=== PATIENT | female | born 1955 | race Caucasian/White ===

== ENCOUNTER 2018-02-06 06:13 | Day surgery (SDC) | payer BC, OTHER ==
--- NOTE | 2018-01-26 20:08 | HP ---
PREOPERATIVE HISTORY AND PHYSICAL: DATE OF ADMISSION/SURGERY: 02/06/18 DATE OF OFFICE VISIT: 01/26/18 ATTENDING SURGEON: Dr. Kirk Lombardi.* (DICTATED BY MARILUZ MARROQUIN) PROCEDURE: Right shoulder arthroscopic rotator cuff repair, decompression and debridement, and subpectoral biceps tenodesis. CHIEF COMPLAINT: Right shoulder. HISTORY OF PRESENT ILLNESS: Lubna is a 63-year-old female who presents to the clinic for a Workmen's Comp injury that caused a rotator cuff tear and biceps tendinitis. She has failed conservative measures and therefore agreed to undergo a right shoulder arthroscopic rotator cuff repair, decompression and debridement, and subpectoral biceps tenodesis with Dr. Lombardi on 02/06/18. PAST MEDICAL HISTORY: Denies current problems. PAST SURGICAL HISTORY: Cyst removal of the right leg x6, spine cyst removal, breast lumpectomy, appendectomy, bladder sling surgery, and tubal ligation. The patient denies prior complications with anesthesia. She does get nauseous with anesthesia. MEDICATIONS: Vitamin D 1000 International Units 2 by mouth every day. ALLERGIES: LATEX, SULFA ANTIBIOTICS. FAMILY HISTORY: Positive for cancer and thyroid issues. SOCIAL HISTORY: She lives with her . 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 She is a former smoker, quit 1 month ago. She denies tobacco use and she denies alcohol use. REVIEW OF SYSTEMS: A 14-point review of systems was reviewed with the patient. Positive for current complaint; otherwise, negative. Denies fever, chills, chest pain, shortness of breath, history of DVT or PE, history of bleeding disorder. PHYSICAL EXAMINATION GENERAL: A 63-year-old well-developed, well-nourished female, in no acute distress. VITAL SIGNS: Height 63, weight 136, blood pressure 120/68, respiratory rate 18 , BMI 24.1. HEENT: Normocephalic, atraumatic. PERRLA. Throat: Clear. NECK: Supple. PULMONARY: Lungs are clear to auscultation bilaterally. No wheezing, rhonchi, or rales. CARDIO: Regular rate and rhythm. S1, S2. No murmurs, gallops, or rubs. No edema. ABDOMEN: Positive bowel sounds, soft, nontender. NEURO: Alert and oriented x3. Cranial nerves grossly intact. Sensation is intact to light touch. MUSCULOSKELETAL: Right upper extremity: Skin is intact. No warmth or erythema. Passive range of motion 160; active 150, abduction 150, external rotation 75, internal rotation to T8; +4/5 strength to rotator cuff testing with pain. Positive impingement, Speed, Royal, and Hardeman; +2 radial pulse. Sensation intact to light touch distally. DIAGNOSTIC STUDIES/LAB DATA: MRI revealed full-thickness tear of the rotator cuff with small effusion with some retraction, mild atrophy, and biceps tendinitis with partial-thickness tearing of the subscapularis. IMPRESSION: Right shoulder rotator cuff tear and biceps tendinitis. PLAN: The patient is scheduled to undergo a right shoulder arthroscopic rotator cuff repair, decompression and debridement, and subpectoral biceps tenodesis with Dr. Lombardi on 02/06/18. She will follow up in 10 to 14 days postop for followup and suture removal. Percocet will be used for postoperative pain management. MARILUZ MARROQUIN [id number]/[facility] #: [id number] MTDD
[~2018-02-06 06:13] MED LIST: Buffered Lidocaine 0.9% SYRIN* 5 ML/SYR SYRINGE INTRADERM ONE; Famotidine IV* 10 MG/ML 2 ML (20 mg) IV SLOW PU ONE; Lactated Ringers 1000 ML Bag* 1,000 ML IV SCH; Scopolamine 1.5 mg* PATCH TRANSDERM SCH
[2018-02-06] MEDS ORDERED: Scopolamine 1.5 mg* PATCH ONE (06:45)
[2018-02-06] MEDS ORDERED: Famotidine IV* 10 MG/ML 2 ML (20 mg) ONE (06:45)
[2018-02-06] MEDS ORDERED: ceFAZolin 2 GM PREMIX in ORs 2 GM/50 ML BAG IVPB ONE (07:01)
[2018-02-06] MEDS ORDERED: ROPIVACAINE 5 MG/ML 30 ML BTL (0.5%) ONE ×2 (07:13→07:22)
[2018-02-06] MEDS ORDERED: Lidocaine 1%* 5 ML VIAL ONE ×2 (07:13)
[2018-02-06] MEDS ORDERED: fentaNYL* 50 MCG/ML 2 ML VIAL (100 MCG VIAL) ONE (07:23)
[2018-02-06] MEDS ORDERED: Midazolam* 1 MG/ML 5 ML VIAL (5 MG) ONE (07:23)
[2018-02-06] MEDS ORDERED: DiMENhydriNATE IV* 50 MG/ML VIAL ONE (08:00)
[2018-02-06] MEDS ORDERED: Propofol* 10 MG/ML 20 ML BTL ONE (08:00)
[2018-02-06] MEDS ORDERED: Succinylcholine* 20 MG/ML 10 ML VIAL ONE (08:00)
[2018-02-06] MEDS ORDERED: Ondansetron INJ* 2 MG/ML VIAL ONE (08:00)
[2018-02-06] MEDS ORDERED: Ketorolac INJ* 30 MG/ML 1 ML VIAL ONE (08:00)
[2018-02-06] MEDS ORDERED: Dexamethasone IV* 4 MG/ML 1 ML (4 MG) ONE (08:00)
[2018-02-06] MEDS ORDERED: Lidocaine 2% PF * 5 ML VIAL ONE (08:00)
[2018-02-06] MEDS ORDERED: Naloxone* 0.4 MG/ML 1 ML VIAL IV PRN (08:40)
[2018-02-06] MEDS ORDERED: HYDROmorphone INJ1* 1 MG/ML SYRINGE IV PRN (08:40)
[2018-02-06] MEDS ORDERED: Acetaminophen TAB* 325 MG PO PRN (08:40)
[2018-02-06] MEDS ORDERED: DiMENhydriNATE IV* 50 MG/ML VIAL IV PUSH PRN (08:40)
[2018-02-06] MEDS ORDERED: oxyCODONE TAB* 5 MG TAB PO PRN (08:40)
[2018-02-06 10:01] VITALS: BP 116/80
--- NOTE | 2018-02-07 07:14 | OP ---
CC: PCP, Ro Golden MD * DATE OF OPERATION: 02/06/18 - [facility] DATE OF : 55 SURGEON: Kirk Lombardi MD HEALTH INFORMATION ASSISTANT: MARILUZ Lucero. An assistant vice president was needed for the entirety of the case to help with positioning, retraction, and was utilized throughout all portions of the case. ANESTHESIOLOGIST: Dr. Maciel. ANESTHESIA: General interscalene block. PRE-OP DIAGNOSES: Right shoulder rotator cuff tear with bicipital tendinitis. POST-OP DIAGNOSES: Right-sided small full-thickness tear of the rotator cuff tear with bicipital tendinitis and tendinosis. OPERATIVE PROCEDURE: Right shoulder arthroscopy with: 1. Extensive glenohumeral debridement. 2. Rotator cuff repair, double-row fashion. 3. Subacromial decompression with acromioplasty. 4. Subpectoral biceps tenodesis. COMPLICATIONS: None. ESTIMATED BLOOD LOSS: Minimal. IMPLANTS USED: One Q-Fix 2.8 mm, one Multifix, one 4.75 Healicoil. INDICATIONS: Ms. Lubna Otero is a 63-year-old female with persistent shoulder pain after work-related injury. She had an MRI that demonstrated a small full- thickness tear of the rotator cuff. She had elected to proceed with surgical treatment. Risks and benefits of surgery were discussed in length including, but not limited to bleeding, infection, damage to nerves, vessels, surrounding structures, wound nonhealing, persistent pain, need for further surgery, scarring, stiffness, incomplete relief of symptoms, and risks of anesthesia. DESCRIPTION OF PROCEDURE: The patient was greeted in the preoperative area by the attending surgeon. Correct extremity was marked and consent was confirmed. She underwent interscalene nerve block by the anesthesiologist, after which she was brought back to the operating suite. She was placed in the supine position on the operating table. She underwent general anesthesia with endotracheal intubation, after which she was placed in the left lateral decubitus position. All bony prominences were padded and secured with the peg board. The right shoulder was draped unsterile with 10 pounds of traction. The right shoulder was then prepped and draped in the usual sterile fashion beginning with chlorhexidine soap, scrub, and alcohol wipe and a final prep with ChloraPrep. After appropriate surgical pause indicating side, site, procedure, and administration of antibiotics, the standard postero-lateral portal was made using an 11 blade. The scope was introduced into the joint. The joint was examined. There were grade 0 to 1 changes of the glenohumeral joint. There were unstable fraying of the anterior, posterior, superior labrum. Biceps had a superior labral tear as well as synovitis. Then, decision was made to do a biceps tenodesis. An anterior portal was made in an outside-in fashion. The shaver was used to debride back the anterior, posterior, and superior labrum and biceps was then tenotomized for later tenodesis. The inferior recess was intact. There was a moderate amount of synovitis. Subscapularis was intact, had mild fraying. There was damage to the biceps darien. The undersurface of the rotator cuff had evidence of a full- thickness tear about the supraspinatus. Once the intra-articular work was completed, attention was directed to the subacromial space. With the scope in the subacromial space, the lateral portal was made in an outside-in fashion. Shaver was used to debride the abundant bursa. The undersurface of the acromion was identified and skeletonized using electrocautery device. There was an irregular anterolateral spur that was debrided back using the 4-0 oval jun. Once the acromioplasty was completed, attention was directed to the rotator cuff. The cuff was probed, the most bursal side was intact, but there was the area where there was a full-thickness tear. Decision was made to do a formal repair. The cuff tear was completed using an 11-blade, the shaver used to debride back the edges of the rotator cuff to a bony bleeding bed. The greater tuberosity was then prepared in the usual fashion with electrocautery device, the rasp, as well as the 4-0 oval jun to allow for bony bleeding bed. After this was completed, through a separate stab incision, a 4.75 Healicoil was placed with excellent purchase. The sutures were passed through the tendon in a horizontal mattress configuration and tied down using arthroscopic knot tying technique. The sutures were then passed through a second anchor, a knotless Multifix for lateral fixation. This allowed for cuff to be compressed in the superior footprint. Final images were obtained. The wounds were then copiously irrigated and attention was directed to the biceps. The bed was air planed to the right side. The anterior aspect of the shoulder was prepped again using ChloraPrep. A 15-blade was used to make an incision in line with the biceps tendon and soft tissues were carefully dissected to expose the biceps. She was found to have synovitis. The groove was then prepared in the usual fashion with electrocautery device, the red ball rasp, as well as the osteotome. After which, the Q-Fix guide was drilled unicortically. The Q-Fix was deployed with excellent purchase. The sutures were passed through the tendon approximately 1 cm proximal to the musculotendinous junction in a Jason- Speedy type configuration. The excess limb was excised and then shuttled back through the wound and then secured. The wounds were then copiously irrigated with sterile saline. Sterile dressings were applied as well as Cryo/Cuff and UltraSling. She was awoken from anesthesia and transferred to the PACU in stable condition. POSTOPERATIVE PLAN: She will be nonweightbearing. She will be in a sling for 6 weeks. She will be discharged on pain medication. She will start physical therapy beginning at 4 weeks postop. I will see the patient back in 10 to 14 days. DVT prophylaxis was considered, but deferred due to no previous personal or family history. [id number]/[facility] #: [id number] MTDD
== END 2018-02-06 09:57 | disposition home or self-care (01) ==
LOC: OREAST 06:13
PROVIDERS: ATTEND Orthopaedic Surgery
DX: S46.011A Strain of muscle(s) and tendon(s) of the rotator cuff of right shoulder, initial encounter (principal); M75.21 Bicipital tendinitis, right shoulder; G89.18 Other acute postprocedural pain; Z87.891 Personal history of nicotine dependence; X58.XXXA Exposure to other specified factors, initial encounter; Y92.9 Unspecified place or not applicable; Y99.0 Civilian activity done for income or pay
CPT/HCPCS: A9270-GY; C1713; C1776; J0330; J0690; J1100; J1240; J1885; J2250; J2405; J2704; J2795; J3010

== ENCOUNTER 2019-01-19 17:22 | Emergency (ER) | payer BC, OTHER ==
--- OUTSIDE RECORDS SUMMARY | 2019-01-19 17:28 | XMS REPORT | Continuity of Care Document ---
:1955 External Reference #:[id number] Author Name Kirk Lombardi MD (transmitted by agent of provider Criselda Hemphill) Address [address] [place] [address] [place] [address] Care Team Providers Name Role Phone Ro Golden MD - Family Medicine Care Team Information Section Laborer Gerald Resendiz MD - Care Team Information Section Laborer [phone] Surgery Problems Active Problems Provider Date Bilateral carpal tunnel syndrome Salvatore Hernandez MD Onset: 03/08/2017 Carpal tunnel syndrome of right wrist Salvatore Hernandez MD Onset: 06/28/2017 Ganglion of hand Salvatore Hernandez MD Onset: 06/28/2017 Full thickness rotator cuff tear Kirk Lombardi MD Onset: 11/25/2017 Injury of shoulder region Kirk Lombardi MD Onset: 11/25/2017 Strain of rotator cuff capsule Kirk Lombardi MD Onset: 02/23/2018 Glenoid labrum tear Kirk Lombardi MD Onset: 02/23/2018 Social History Type Date Description Comments Sex Unknown ETOH Use Denies alcohol use Tobacco Use Start: Unknown Light tobacco smoker (10 or fewer cigarettes/day) Smoking Status Reviewed: 12/28/18 Light tobacco smoker (10 or fewer cigarettes/day) Exercise Type/Frequency Walks daily Allergies, Adverse Reactions, Alerts Active Allergies Reaction Severity Comments Date Latex 03/08/2017 Sulfa Antibiotics 06/28/2017 Inactive Allergies NKDA 06/30/2011 Medications Active Medications SIG Qnty Indications Ordering Provider Date Vitamin D 2 by mouth every Unknown (Cholecalciferol) day 1000Iu Capsules Probiotic Unknown Medications Administered in Office Medication SIG Qnty Indications Ordering Provider Date Celestone 3 mg and 3mg John Mccoy MD 09/21/2017 Injection Celestone 3 mg and 3mg Salvatore Hernandez MD 06/28/2017 Injection Celestone 3 mg and 3mg Salvatore Hernandez MD 05/31/2017 Injection Immunizations Description No Information Available Vital Signs Date Vital Result Comment 12/28/2018 2:53pm Height 62 inches 5'2" Weight 130.00 lb Heart Rate 81 /min BP Systolic 106 mmHg BP Diastolic 70 mmHg Respiratory Rate 18 /min Body Temperature 97.9 F Pain Level 0 BMI (Body Mass Index) 23.8 kg/m2 11/28/2018 2:18pm Height 62 inches 5'2" Weight 130.00 lb Heart Rate 76 /min BP Systolic 128 mmHg BP Diastolic 64 mmHg Respiratory Rate 16 /min Pain Level 0 BMI (Body Mass Index) 23.8 kg/m2 Results Description No Information Available Procedures Description No Information Available Medical Devices Description No Information Available Encounters Type Date Location Provider Dx Diagnosis Office Visit 11/28/2018 Jennifer Lombardi MD S46.011D Strain of 2:15p at [facility] teresa/tend the rotator cuff of right shoulder, subs S43.431D Superior glenoid labrum lesion of right shoulder, subs S46.011D Strain of musc/tend the rotator cuff of right shoulder, subs Office Visit 10/25/2018 2:40p [facility] AT Isra Singhmanuel, L82.1 Other seborrheic Vicente QUEEN keratosis L56.8 Ot acute skin changes due to ultraviolet radiation D22.62 Melanocytic nevi of left upper limb, including shoulder D22.61 Melanocytic nevi of right upper limb, including shoulder Office Visit 09/26/2018 2:15p Jennifer Lombardi S46.011D Strain of at [place] teresa/tend the rotator cuff of right shoulder, subs S43.431D Superior glenoid labrum lesion of right shoulder, subs Office Visit 07/25/2018 2:15p Jennifer Lombardi S46.011D Strain of at [place] teresa/tend the rotator cuff of right shoulder, subs S43.431D Superior glenoid labrum lesion of right shoulder, subs M77.11 Lateral epicondylitis, right elbow Assessments Date Code Description Provider 12/28/2018 S46.011D Strain of muscle(s) and tendon(s) of the rotator Kirk Lombardi MD cuff of rig 12/28/2018 S43.431D Superior glenoid labrum lesion of right Kirk Lombardi MD shoulder, subsequent 11/28/2018 S46.011D Strain of muscle(s) and tendon(s) of the rotator Kirk Lombardi MD cuff of rig 11/28/2018 S43.431D Superior glenoid labrum lesion of right Kirk Lombardi MD shoulder, subsequent 11/28/2018 S46.011D Strain of muscle(s) and tendon(s) of the rotator Kirk Lombardi MD cuff of right shoulder, subsequent encounter 10/25/2018 L82.1 Other seborrheic keratosis Isra Chacon MD 10/25/2018 L56.8 Other specified acute skin changes due to Isra Chacon MD ultraviolet radiation 10/25/2018 D22.62 Melanocytic nevi of left upper limb, including Isra Chacon MD shoulder 10/25/2018 D22.61 Melanocytic nevi of right upper limb, including Isra Chacon MD shoulder 09/26/2018 S46.011D Strain of muscle(s) and tendon(s) of the rotator Kirk Lombardi MD cuff of rig 09/26/2018 S43.431D Superior glenoid labrum lesion of right Kirk Lombardi MD shoulder, subsequent 07/25/2018 S46.011D Strain of muscle(s) and tendon(s) of the rotator Kirk Lombardi MD cuff of rig 07/25/2018 S43.431D Superior glenoid labrum lesion of right Kirk Lombardi MD shoulder, subsequent 07/25/2018 M77.11 Lateral epicondylitis, right elbow Kirk Lombardi MD Plan of Treatment Future Appointment(s):02/08/2019 2:45 pm - Kirk Lombardi MD at [facility] at Cxnuek1001/12/2019 2:00 pm - Salvatore Hernandez MD at [facility] at Bgbawlmo16/21/2019 - Zaneb Yaseen, MDS46.011D Strain of muscle(s ) and tendon(s) of the rotator cuff of rigFollow up:Follow up: february for loss of useS43.431D Superior glenoid labrum lesion of right shoulder, subsequent Functional Status Description No Information Available Mental Status Description No Information Available Referrals Description No Information Available
--- OUTSIDE RECORDS SUMMARY | 2019-01-19 17:28 | XMS REPORT | Continuity of Care Document ---
:1955 External Reference #:[id number] Author Name Salvatore Hernandez MD (transmitted by agent of provider Ortega Wilson) Address [address] [place] [id number] Care Team Providers Name Role Phone Ro Golden MD - Family Medicine Care Team Information Ux Visual Designer Gerald Resendiz MD - Care Team Information Ux Visual Designer Surgery Problems Active Problems Provider Date Bilateral [...] (10 or fewer cigarettes/day) Smoking Status Reviewed: 01/12/19 Light tobacco smoker (10 or fewer cigarettes/day) [...] Available Vital Signs Date Vital Result Comment 01/12/2019 2:04pm Height 62 inches 5'2" Weight 135.00 lb Heart Rate 61 /min BP Systolic 102 mmHg BP Diastolic 72 mmHg Respiratory Rate 16 /min Body Temperature 98.2 F Pain Level 0 O2 % BldC Oximetry 94 % BMI (Body Mass Index) 24.7 kg/m2 12/28/2018 2:53pm Height 62 inches 5'2" Weight [...] right shoulder, subs Office Visit 10/25/2018 2:40p [facility] AT Isra Wintersmanuel, L82.1 Other seborrheic Vicente QUEEN keratosis L56.8 [...] 2:45 pm - Kirk Lombardi MD at [facility] Functional Status Description No Information Available Mental Status Description No Information Available Referrals Description No Information Available
--- OUTSIDE RECORDS SUMMARY | 2019-01-19 17:28 | XMS REPORT | Continuity of Care Document ---
:1955 External Reference #:[id number] Author Name Kirk Lombardi MD (transmitted by agent of provider Kendra Shin) Address [address] [place] [address] [place] [address] Care Team Providers Name Role Phone Ro Golden MD - Family Medicine Care Team Information Hearing Aid Assembly Supervisor Gerald Resendiz MD - Care Team Information Hearing Aid Assembly Supervisor [phone] Surgery Problems Active Problems Provider Date Bilateral [...] (10 or fewer cigarettes/day) Smoking Status Reviewed: 11/28/18 Light tobacco smoker (10 or fewer cigarettes/day) Exercise Type/Frequency Walks daily Allergies, Adverse Reactions, Alerts Active Allergies Reaction Severity Comments Date Latex 03/08/2017 Sulfa Antibiotics 06/28/2017 Inactive Allergies NKDA 06/30/2011 Medications Active Medications SIG Qnty Indications Ordering Provider Date Vitamin D 2 by mouth every Unknown (Cholecalciferol) day 1000Iu Capsules Medications Administered in Office Medication SIG Qnty Indications Ordering Provider Date Celestone 3 mg and 3mg John Mccoy MD 09/21/2017 Injection Celestone 3 mg and 3mg Salvatore Hernandez MD 06/28/2017 Injection Celestone 3 mg and 3mg Salvatore Hernandez MD 05/31/2017 Injection Immunizations Description No Information Available Vital Signs Date Vital Result Comment 11/28/2018 2:18pm Height 62 inches 5'2" Weight 130.00 lb Heart Rate 76 /min BP Systolic 128 mmHg BP Diastolic 64 mmHg Respiratory Rate 16 /min Pain Level 0 BMI (Body Mass Index) 23.8 kg/m2 09/26/2018 2:19pm Height 62 inches 5'2" Weight 135.00 lb BP Systolic 120 mmHg BP Diastolic 62 mmHg Respiratory Rate 18 /min Pain Level 0 BMI (Body Mass Index) 24.7 kg/m2 Results Description No Information Available Procedures Description No Information Available Medical Devices Description No Information Available Encounters Type Date Location Provider Dx Diagnosis Office Visit 10/25/2018 [facility] AT Isra Chacon MD L82.1 Other seborrheic 2:40p [place] keratosis L56.8 Oth acute skin changes due to ultraviolet radiation [...] shoulder, subs M77.11 Lateral epicondylitis, right elbow Office Visit 06/20/2018 8:00a Jennifer Lombardi S46.011D Strain of at [facility] teresa/tend the rotator cuff of right shoulder, subs S43.431D Superior glenoid labrum lesion of right shoulder, subs Assessments Date Code Description Provider 11/28/2018 S46.011D Strain of muscle(s) and tendon(s) [...] Lateral epicondylitis, right elbow Kirk Lombardi MD 06/20/2018 S46.011D Strain of muscle(s) and tendon(s) of the rotator Kirk Lombardi MD cuff of rig 06/20/2018 S43.431D Superior glenoid labrum lesion of right Kirk Lombardi MD shoulder, subsequent Plan of Treatment 11/28/2018 - YUSRA Davies46.011D Strain of muscle(s) and tendon(s) of the rotator cuff of rigNew Xrays:MRI Shoulder Right W/O, Ordered: 11/28/18Follow up: Follow up: after MRIS43.431D Superior glenoid labrum lesion of right shoulder , subsequent Functional Status Description No Information Available Mental Status Description No Information Available Referrals Description No Information Available
[2019-01-19 17:36] VITALS: BP 149/71
[2019-01-19] MEDS ORDERED: predniSONE TAB* 20 MG PO ONE (18:03)
--- NOTE | 2019-01-19 18:19 | UC ---
Skin Complaint HPI - HPI Summary HPI Summary: Pt presents with c/o itchy rash that began today on her forearm while sitting at home. Pt denies contact with known allergen. Pt states that itchy rash began to spread diffusely over extremities and trunk. Pt has not taken any medications nor does she have any known allergies. Pt is concerned that she may have scabies because she has had them before. Denies any difficulty breathing, swallowing or speaking. 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 - History of Current Complaint Chief Complaint: UCRash Time Seen by Provider: 01/19/19 17:30 Stated Complaint: RASH Hx Obtained From: Patient ?: No Onset/Duration: Sudden Onset, Lasting Hours, Still Present, Worse Since - onset Skin Exposure Onset/Duration: Hours Ago Timing: Constant Onset Severity: Mild Current Severity: Moderate Pain Intensity: 6 Location: Diffuse Character: Pruritus, Pain, Redness, Raised Aggravating Factor(s): Touch Alleviating Factor(s): Unknown Associated Signs & Symptoms: Positive: Rash - Allergy/Home Medications Allergies/Adverse Reactions: Allergies Allergy/AdvReac Type Severity Reaction Status Date / Time latex Allergy Rash Verified 01/19/19 17:32 Sulfa (Sulfonamide Allergy GI UPSET, Verified 01/19/19 17:32 Antibiotics) VOMITING Home Medications: Home Medications Diclofenac 1% GEL (NF) [Voltaren 1% GEL (NF)] 1 applic TOPICAL ONCE 01/19/19 [ History Confirmed 01/19/19] L.acidoph,Paracasei, B.lactis [Probiotic] 1 each PO DAILY 01/19/19 [History Confirmed 01/19/19] PMH/Surg Hx/FS Hx/Imm Hx Previously Healthy: Yes - Surgical History Surgical History: Yes Surgery Procedure, Year, and Place: CYSTS REMOVED- RT LEG , BREAST , SPINE, HANDS;. APPENDECTOMY;. TUBAL LIGATION;. RIGHT ROMERO ROTATOR CUFF;. TEAR DUCTS SHUNTS;. CATARACTS;. CLADDER SLING; - Family History Known Family History: Positive: Non-Contributory - Social History Occupation: Employed Full-time Lives: With Family Alcohol Use: None Substance Use Type: None Smoking Status (MU): Light Every Day Tobacco Smoker Amount Used/How Often: 1/4 PPD Length of Time of Smoking/Using Tobacco: On and Off Since Teenager Have You Smoked in the Last Year: Yes When Did the Patient Quit Smoking/Using Tobacco: 12/2017 - Immunization History Vaccination Up to Date: Yes Review of Systems All Other Systems Reviewed And Are Negative: Yes Constitutional: Positive: Negative Skin: Positive: Rash Eyes: Positive: Negative ENT: Positive: Negative Respiratory: Positive: Negative Cardiovascular: Positive: Negative Gastrointestinal: Positive: Negative Genitourinary: Positive: Negative Motor: Positive: Negative Neurovascular: Positive: Negative Musculoskeletal: Positive: Negative Neurological: Positive: Negative Psychological: Positive: Negative Is Patient Immunocompromised?: No Physical Exam Triage Information Reviewed: Yes Appearance: Well-Appearing Vital Signs: Initial Vital Signs Temp 97.9 F 01/19/19 17:28 Pulse 73 01/19/19 17:28 Resp 16 01/19/19 17:28 BP 149/71 01/19/19 17:28 Pulse Ox 100 01/19/19 17:28 Vital Signs Reviewed: Yes Eye Exam: Normal Dental Exam: Normal Neck exam: Normal Respiratory Exam: Normal Respiratory: Positive: No respiratory distress Musculoskeletal Exam: Normal Neurological Exam: Normal Psychological Exam: Normal Skin: Positive: Rashes - diffuse urticaria Course/Dx - Differential Diagnoses - Skin Complaint Differential Diagnoses: Allergic Reaction, Contact Dermatitis, Scabies, Urticaria - Diagnoses Provider Diagnosis: Urticaria Discharge ED - Sign-Out/Discharge Documenting (check all that apply): Patient Departure All imaging exams completed and their final reports reviewed: No Studies - Discharge Plan Condition: Stable Disposition: HOME Prescriptions: predniSONE TAB* [Deltasone 20 MG TAB*] 20 mg PO DAILY #4 tab Patient Education Materials: Antihistamine (By mouth), Urticaria (ED) Referrals: Ro Golden MD [Primary Care Provider] - If Needed - Billing Disposition and Condition Condition: STABLE Disposition: Home - Attestation Statements Provider Attestation: I was available for consult. This patient was seen by the BILL. The patient was not presented to, seen by, or examined by me. -Darling
== END 2019-01-19 18:15 | disposition home or self-care (01) ==
LOC: UCCORT 17:22
DX: L50.9 Urticaria, unspecified (principal); F17.210 Nicotine dependence, cigarettes, uncomplicated; Z91.040 Latex allergy status; Z88.2 Allergy status to sulfonamides
CPT/HCPCS: 99212; G0463; J7512